=== PATIENT | male | born 1990 | race African-American/Black ===

== ENCOUNTER 2017-07-15 18:09 | Emergency (ER) | payer SELFPAY ==
[~2017-07-15] VITALS: Ht 182.9 cm; Wt 70.0 kg
[~2017-07-15 18:09] MED LIST: PRED10PA PO
[2017-07-15 18:18] VITALS: BP 111/71; PULSE 62; RESP 16; TEMP 97.6; O2SAT 99
== END 2017-07-15 20:44 | disposition left against medical advice (07) ==
LOC: NETRI 18:09
DX: R68.89 Other general symptoms and signs (principal)
CPT/HCPCS: 99281

== ENCOUNTER 2017-07-16 16:46 | Emergency (ER) | payer SELFPAY ==
[~2017-07-16] VITALS: Ht 182.9 cm; Wt 70.9 kg
[2017-07-16 17:05] VITALS: BP 107/71; PULSE 57; RESP 16; TEMP 97.6; O2SAT 100
[2017-07-16] MEDS ORDERED: SODIUM CHLOR 0.9% 1000 ML INJ 1,000 ML IV SCH (19:47)
[2017-07-16 19:53] LABS: BILIRUBIN, URINE NEG (NEG); BLOOD, URINE NEG (NEG); GLUCOSE,URINE NEG (NEG); KETONE, URINE 15 mg/dL (NEG); NITRITE,URINE NEG (NEG); PH, URINE 6.5 (5.0-8.5); URINE COLOR YELLOW (YELLW/STRAW); URINE LEUKOCYTE ESTERASE NEG (NEG)
[2017-07-16] MEDS ORDERED: SODIUM CHLORIDE 0.9% FLUSH 10 ML FLUSH IV FLUSH PRN (20:00)
[2017-07-16 20:02] VITALS: BP 120/76; PULSE 55; RESP 18; O2SAT 100
--- NOTE | 2017-07-16 20:02 | PD ---
HPI Chief Complaint: Abdominal Pain Time Seen by Provider: 19:28 Travel History International Travel<30 days: No Contact w/Intl Traveler<30days: No Traveled to known affect area: No History of Present Illness HPI Patient is a 27-year-old male who presents to emergency room with complaints of abdominal pain. Patient reports that since yesterday, he has been having intermittent bouts of abdominal pain. Patient reports that when he has abdominal pain, pain is sharp and stabbing in nature and resolves after about 1 hour of time. Patient reports that he was at work today and he had another episode of abdominal pain. Reports that it again lasted 1 hour and he had to go home from work due to this pain. Patient reports complete resolution abdominal pain at this time. Reports that nothing makes pain better or worse when he has these symptoms. Patient with no nausea or vomiting, denies constipation or diarrhea, reports that he had a bowel movement prior to coming to the emergency room. Denies fever/chills. patient with no complaints at this time. PFSH Past Medical History Medical History: Denies Significant Hx Diminished Hearing: No Tetanus Vaccination: < 5 Years Influenza Vaccination: No ?: Not Past Surgical History Surgical History: No Previous Surgery Social History Alcohol Use: Yes (OCCASIONAL) Tobacco Use: No Substance Use: No Allergies-Medications (Allergen,Severity, Reaction): Coded Allergies: No Known Allergies (Verified , 10/23/15) Reported Meds & Prescriptions Reported Meds & Active Scripts Active Sterapred Ds 12 Day Pack (Prednisone) 10 Mg Manolo 10 Mg PO DIRECTED USE DIRECTED Reported Sterapred Ds (Prednisone) 10 Mg Manolo 10 Mg PO DIRECTED Review of Systems General / Constitutional: No: Fever, Chills Eyes: No: Visual changes HENT: No: Headaches Cardiovascular: No: Chest Pain or Discomfort Respiratory: No: Shortness of Breath Gastrointestinal: Positive: Abdominal Pain, No: Nausea, Vomiting, Diarrhea Genitourinary: No: Dysuria Musculoskeletal: No: Pain Skin: No Rash Neurologic: No: Weakness Psychiatric: No: Depression Endocrine: No: Polydipsia Hematologic/Lymphatic: No: Easy Bruising Physical Exam Narrative GENERAL: NAD SKIN: Focused skin assessment warm/dry. HEAD: Atraumatic. Normocephalic. EYES: Pupils equal and round. No scleral icterus. No injection or drainage. ENT: No nasal bleeding or discharge. Mucous membranes pink and moist. NECK: Trachea midline. No JVD. CARDIOVASCULAR: Regular rate and rhythm. No murmur appreciated. RESPIRATORY: No accessory muscle use. Clear to auscultation. Breath sounds equal bilaterally. GASTROINTESTINAL: Abdomen soft, non-tender, nondistended. Hepatic and splenic margins not palpable. MUSCULOSKELETAL: No obvious deformities. No clubbing. No cyanosis. No edema. NEUROLOGICAL: Awake and alert. No obvious cranial nerve deficits. Motor grossly within normal limits. Normal speech. PSYCHIATRIC: Appropriate mood and affect; insight and judgment normal. Data Data Last Documented VS Vital Signs Date Time Temp Pulse Resp B/P (MAP) Pulse Ox O2 Delivery O2 Flow Rate FiO2 07/16/17 21:14 55 16 122/73 (89) 100 Room Air 07/16/17 17:05 97.6 Orders Orders Urinalysis - C+S If Indicated (07/16/17 18:13) Complete Blood Count With Diff (07/16/17 19:47) Comprehensive Metabolic Panel (07/16/17 19:47) Lipase (07/16/17 19:47) Prothrombin Time / Inr (Pt) (07/16/17 19:47) Act Partial Throm Time (Ptt) (07/16/17 19:47) Iv Access Insert/Monitor (07/16/17 19:47) Ecg Monitoring (07/16/17 19:47) Oximetry (07/16/17 19:47) Sodium Chlor 0.9% 1000 Ml Inj (Ns 1000 M (07/16/17 19:47) Sodium Chloride 0.9% Flush (Ns Flush) (07/16/17 20:00) Urine Culture (07/16/17 19:30) Gc And Chlamydia Pcr (07/16/17 21:35) Labs Laboratory Tests Test 07/16/17 19:30 07/16/17 19:55 Urine Color YELLOW Urine Turbidity CLEAR Urine pH 6.5 Urine Specific [place] 1.025 Urine Protein TRACE mg/dL Urine Glucose (UA) NEG mg/dL Urine Ketones 15 mg/dL Urine Occult Blood NEG Urine Nitrite NEG Urine Bilirubin NEG Urine Urobilinogen 1.0 MG/DL Urine Leukocyte Esterase NEG Urine RBC 0-3 /hpf Urine WBC 9-14 /hpf Urine Squamous Epithelial Cells 0-5 /hpf Urine Bacteria OCC /hpf Urine Mucus MANY /lpf Microscopic Urinalysis Comment CULTURE INDICATED White Blood Count 7.7 TH/MM3 Red Blood Count 5.32 MIL/MM3 Hemoglobin 12.2 GM/DL Hematocrit 38.4 % Mean Corpuscular Volume 72.0 FL Mean Corpuscular Hemoglobin 23.0 PG Mean Corpuscular Hemoglobin Concent 31.9 % Red Cell Distribution Width 14.2 % Platelet Count 294 TH/MM3 Mean Platelet Volume 7.9 FL Neutrophils (%) (Auto) 55.4 % Lymphocytes (%) (Auto) 24.6 % Monocytes (%) (Auto) 5.8 % Eosinophils (%) (Auto) 13.6 % Basophils (%) (Auto) 0.6 % Neutrophils # (Auto) 4.4 TH/MM3 Lymphocytes # (Auto) 1.9 TH/MM3 Monocytes # (Auto) 0.4 TH/MM3 Eosinophils # (Auto) 1.0 TH/MM3 Basophils # (Auto) 0.0 TH/MM3 CBC Comment AUTO DIFF Differential Comment AUTO DIFF CONFIRMED Ovalocytes 1+ Prothrombin Time 11.7 SEC Prothromb Time International Ratio 1.2 RATIO Activated Partial Thromboplast Time 27.1 SEC Blood Urea Nitrogen 13 MG/DL Creatinine 0.92 MG/DL Random Glucose 90 MG/DL Total Protein 8.7 GM/DL Albumin 4.4 GM/DL Calcium Level 9.8 MG/DL Alkaline Phosphatase 46 U/L Aspartate Amino Transf (AST/SGOT) 21 U/L Alanine Aminotransferase (ALT/SGPT) 19 U/L Total Bilirubin 0.7 MG/DL Sodium Level 138 MEQ/L Potassium Level 3.6 MEQ/L Chloride Level 104 MEQ/L Carbon Dioxide Level 28.3 MEQ/L Anion Gap 6 MEQ/L Estimat Glomerular Filtration Rate 119 ML/MIN Lipase 110 U/L [facility] Medical Decision Making Medical Screen Exam Complete: Yes Emergency Medical Condition: Yes Medical Record Reviewed: Yes Interpretation(s) Vital Signs Date Time Temp Pulse Resp B/P (MAP) Pulse Ox O2 Delivery O2 Flow Rate FiO2 07/16/17 17:05 97.6 57 16 107/71 (83) 100 Differential Diagnosis Gastritis, gastroenteritis, cholecystitis Narrative Course Patient is a 27 year old male who presents to the ER with complaints of abdominal pain x 2 days. Patient currently with no abdominal pain at this time. During the course of the patients emergency department visit, the patients history, examination, and differential diagnosis were reviewed with the patient. The patient was placed on a cardiac cath lab manager with oximetry and frequent blood pressure monitoring. The patient had an IV access obtained and blood work sent for analysis. The patient was initially provided IVF. The patients laboratory studies were reviewed and remarkable for: Laboratory Tests Test 07/16/17 19:30 07/16/17 19:55 Urine Color YELLOW (YELLW/STRAW) Urine Turbidity CLEAR (CLEAR) Urine pH 6.5 (5.0-8.5) Urine Specific [place] 1.025 (1.002-1.035) Urine Protein TRACE mg/dL (NEG-TRACE) Urine Glucose (UA) NEG mg/dL (NEG) Urine Ketones 15 mg/dL (NEG) Urine Occult Blood NEG (NEG) Urine Nitrite NEG (NEG) Urine Bilirubin NEG (NEG) Urine Urobilinogen 1.0 MG/DL (LESS THAN Urine Leukocyte Esterase NEG (NEG) Urine RBC 0-3 /hpf (0-3) Urine WBC 9-14 /hpf (0-5) Urine Squamous Epithelial Cells 0-5 /hpf (0-5) Urine Bacteria OCC /hpf (NONE) Urine Mucus MANY /lpf (OCC) Microscopic Urinalysis Comment CULTURE INDICATED White Blood Count 7.7 TH/MM3 (4.0-11.0) Red Blood Count 5.32 MIL/MM3 (4.50-5.90) Hemoglobin 12.2 GM/DL (13.0-17.0) Hematocrit 38.4 % (39.0-51.0) Mean Corpuscular Volume 72.0 FL (80.0-100.0) Mean Corpuscular Hemoglobin 23.0 PG (27.0-34.0) Mean Corpuscular Hemoglobin Concent 31.9 % (32.0-36.0) Red Cell Distribution Width 14.2 % (11.6-17.2) Platelet Count 294 TH/MM3 (150-450) Mean Platelet Volume 7.9 FL (7.0-11.0) Neutrophils (%) (Auto) 55.4 % (16.0-70.0) Lymphocytes (%) (Auto) 24.6 % (9.0-44.0) Monocytes (%) (Auto) 5.8 % (0.0-8.0) Eosinophils (%) (Auto) 13.6 % (0.0-4.0) Basophils (%) (Auto) 0.6 % (0.0-2.0) Neutrophils # (Auto) 4.4 TH/MM3 (1.8-7.7) Lymphocytes # (Auto) 1.9 TH/MM3 (1.0-4.8) Monocytes # (Auto) 0.4 TH/MM3 (0-0.9) Eosinophils # (Auto) 1.0 TH/MM3 (0-0.4) Basophils # (Auto) 0.0 TH/MM3 (0-0.2) CBC Comment AUTO DIFF Differential Comment AUTO DIFF CONFIRMED Ovalocytes 1+ (NORMAL) Prothrombin Time 11.7 SEC (9.8-11.6) Prothromb Time International Ratio 1.2 RATIO Activated Partial Thromboplast Time 27.1 SEC (24.3-30.1) Blood Urea Nitrogen 13 MG/DL (7-18) Creatinine 0.92 MG/DL (0.60-1.30) Random Glucose 90 MG/DL (74-106) Total Protein 8.7 GM/DL (6.4-8.2) Albumin 4.4 GM/DL (3.4-5.0) Calcium Level 9.8 MG/DL (8.5-10.1) Alkaline Phosphatase 46 U/L (45-117) Aspartate Amino Transf (AST/SGOT) 21 U/L (15-37) Alanine Aminotransferase (ALT/SGPT) 19 U/L (12-78) Total Bilirubin 0.7 MG/DL (0.2-1.0) Sodium Level 138 MEQ/L (136-145) Potassium Level 3.6 MEQ/L (3.5-5.1) Chloride Level 104 MEQ/L (98-107) Carbon Dioxide Level 28.3 MEQ/L (21.0-32.0) Anion Gap 6 MEQ/L (5-15) Estimat Glomerular Filtration Rate 119 ML/MIN (>89) Lipase 110 U/L (73-393) Patient reevaluated, patient reports that he is feeling much better at this time. Abdomen is soft, nontender, nondistended, no peritoneal signs. I reviewed all labs and all studies with patient in detail, patient understands all incidental findings. UA is positive for 9-14 white blood cells, occasional bacteria, many mucus, 15 ketones, patient denies any penile discharge, denies dysuria, urinary urgency or frequency. Discussed with him that I will not treat him for UTI as he is asymptomatic. Patient is well-appearing, has not had any nausea, vomiting or diarrhea while in the emergency room. Patient will follow-up with his primary care doctor and will return to the emergency room as needed. Diagnosis Primary Impression: Abdominal pain Qualified Codes: R10.84 - Generalized abdominal pain Patient Instructions: General Instructions Departure Forms: Tests/Procedures, Work Release Enter return to work date: Jul 17, 2017 Additional Instructions: Please provide patient with a copy of their lab work at discharge Please follow up with your primary care doctor in 2-3 days Return to the ER if symptoms worsen or progress Return to the ER as needed Please follow-up with all cultures from today Disposition: 01 DISCHARGE HOME Condition: Stable Gayle Gagnon DO Jul 16, 2017 20:02
[2017-07-16 20:08] LABS: AUTOMATED NEUTROPHIL # 4.4 TH/MM3 (1.8-7.7); BASOPHIL % 0.6 % (0.0-2.0); EOSINOPHIL % 13.6 % (0.0-4.0); HEMATOCRIT 38.4 % (39.0-51.0); HEMOGLOBIN 12.2 GM/DL (13.0-17.0); LYMPH % 24.6 % (9.0-44.0); LYMPHOCYTE # 1.9 TH/MM3 (1.0-4.8); MEAN CORPUSCULAR HGB CONC 31.9 % (32.0-36.0); MEAN PLATELET VOLUME 7.9 FL (7.0-11.0); MONO % 5.8 % (0.0-8.0); MONOCYTE # 0.4 TH/MM3 (0-0.9); NEUT % 55.4 % (16.0-70.0); PLATELET COUNT 294 TH/MM3 (150-450); RED BLOOD COUNT 5.32 MIL/MM3 (4.50-5.90); RED CELL DISTRIBUTION WIDTH 14.2 % (11.6-17.2); WHITE BLOOD COUNT 7.7 TH/MM3 (4.0-11.0)
[2017-07-16 20:14] LABS: BACTERIA, URINE OCC /hpf; MUCUS URINE MANY /lpf (OCC); RBC, URINE 0-3 /hpf (0-3); SQUAMOUS EPITHELIAL CELL URINE 0-5 /hpf (0-5)
[2017-07-16 20:17] LABS: CHLORIDE 104 MEQ/L (98-107); SODIUM (NA) 138 MEQ/L (136-145)
[2017-07-16 20:19] LABS: INTERNATIONAL NORMALIZED RATIO 1.2 RATIO; PROTHROMBIN TIME - PATIENT 11.7 SEC (9.8-11.6)
[2017-07-16 20:21] LABS: CALCIUM 9.8 MG/DL (8.5-10.1)
[2017-07-16 20:22] LABS: ALBUMIN 4.4 GM/DL (3.4-5.0); BICARBONATE 28.3 MEQ/L (21.0-32.0); BLOOD UREA NITROGEN 13 MG/DL (7-18); GLUCOSE,RANDOM 90 MG/DL (74-106)
[2017-07-16 20:24] LABS: ALT (GPT) 19 U/L (12-78)
[2017-07-16 20:25] LABS: AST (GOT) 21 U/L (15-37); CREATININE 0.92 MG/DL (0.60-1.30); GLOMERULAR FILTRATION RATE 119 ML/MIN (>89)
[2017-07-16 20:26] LABS: TOTAL BILIRUBIN ADULT 0.7 MG/DL (0.2-1.0); TOTAL PROTEIN 8.7 GM/DL (6.4-8.2)
[2017-07-16 20:27] LABS: ALKALINE PHOSPHATASE 46 U/L (45-117)
[2017-07-16 21:13] LABS: OVALOCYTES 1+ (NORMAL)
[2017-07-16 21:14] VITALS: BP 122/73; PULSE 55; RESP 16; O2SAT 100
[2017-07-16 21:50] VITALS: BP 116/74
[2017-07-17] MEDS ORDERED: OMEP20TA93 PO (09:19)
== END 2017-07-16 22:00 | disposition home or self-care (01) ==
LOC: PHED 16:46
DX: R10.84 Generalized abdominal pain (principal)
CPT/HCPCS: 80053; 81001; 83690; 85025; 85610; 85730; 87086; 87491; 87591; 96360; 99284; J7030

== ENCOUNTER 2017-07-17 08:35 | Emergency (ER) | payer SELFPAY ==
[~2017-07-17] VITALS: Ht 182.9 cm; Wt 72.5 kg
[2017-07-17 08:40] VITALS: BP 120/55; PULSE 73; RESP 16; TEMP 98.2; O2SAT 99
--- NOTE | 2017-07-17 08:59 | PD ---
HPI Chief Complaint: Abdominal Pain Time Seen by Provider: 08:58 Travel History International Travel<30 days: No Contact w/Intl Traveler<30days: No Traveled to known affect area: No History of Present Illness HPI 27-year-old male came to the emergency room with history of epigastric pain that has been intermittently therefore many months. Patient has noticed in past few weeks it has become more frequent. Patient says that the pain comes in sudden waves without warning and is severe enough where he has to stop whatever he is doing till the pain passes away. It does not lead to any vomiting, diarrhea or passing gas. No aggravating symptoms noticed. Patient does feel better if he eats something. Patient was seen in [place] emergency room yesterday where he was diagnosed with UTI as per the patient but no prescription was given. However he went home and looked up his symptoms and he is concerned that they have pointing towards his gallbladder. That is why he came here to get further tests done. Currently patient is pain-free. He said he ate a bowl of cereal this morning an hour ago and was able to keep it down. Vital signs are stable. Patient has been in this emergency room multiple times. He does not have a primary care. Patient smokes and drinks occasionally and eats spicy food. [facility], [facility] Past Medical History Narrative Medical List of his past medical, surgical, social and family history is reviewed from the nursing note. Medical History: Denies Significant Hx Diminished Hearing: No Past Surgical History Surgical History: No Previous Surgery Social History Alcohol Use: Yes (OCCASIONAL) Tobacco Use: No Substance Use: No Allergies-Medications (Allergen,Severity, Reaction): Coded Allergies: No Known Allergies (Verified Adverse Reaction, Unknown, 07/17/17) Comments No known drug allergies. Reported Meds & Prescriptions Reported Meds & Active Scripts Active Omeprazole 20 Mg Tab 20 Mg PO DAILY Narrative Medication List of his home medications reviewed from the nursing note. Review of Systems Except as stated in HPI: all other systems reviewed are Neg Gastrointestinal: Positive: Abdominal Pain Physical Exam Narrative GENERAL: Awake, alert, no obvious distress SKIN: Focused skin assessment warm/dry. HEAD: Atraumatic. Normocephalic. EYES: Pupils equal and round. No scleral icterus. No injection or drainage. ENT: No nasal bleeding or discharge. Mucous membranes pink and moist. NECK: Trachea midline. No JVD. CARDIOVASCULAR: Regular rate and rhythm. No murmur appreciated. RESPIRATORY: No accessory muscle use. Clear to auscultation. Breath sounds equal bilaterally. GASTROINTESTINAL: Abdomen soft, non-tender, nondistended. Hepatic and splenic margins not palpable. MUSCULOSKELETAL: No obvious deformities. No clubbing. No cyanosis. No edema. NEUROLOGICAL: Awake and alert. No obvious cranial nerve deficits. Motor grossly within normal limits. Normal speech. PSYCHIATRIC: Appropriate mood and affect; insight and judgment normal. Data Data Last Documented VS Vital Signs Date Time Temp Pulse Resp B/P (MAP) Pulse Ox O2 Delivery O2 Flow Rate FiO2 07/17/17 09:37 78 18 118/72 (87) 99 07/17/17 08:40 98.2 Orders Orders Ed Poc Ultrasound (07/17/17 ) Ed Discharge Order (07/17/17 09:17) [facility] Medical Decision Making Medical Screen Exam Complete: Yes Emergency Medical Condition: Yes Medical Record Reviewed: Yes Differential Diagnosis Acute gastritis, biliary colic, abdominal pain NOS Narrative Course 9:22 AM I did a bedside ultrasound. Please refer to my procedure note. I was unable to see any gallstones. Patient will be discharged home. I gave him instructions for diet control regarding acute gastritis/GERD. Patient understands. He will go home with prescription. Procedures Procedure Narrative Emergency department right upper quadrant ultrasound was performed with patient consent. Curvilinear probe was used in the transverse and sagittal views within the right upper quadrant revealing gallbladder without obvious wall thickening, cholecystic fluid, or cholelithiasis. EKG Prior to Arrival: No Diagnosis Primary Impression: Abdominal pain Qualified Codes: R10.13 - Epigastric pain Additional Impression: Acute gastritis Qualified Codes: K29.00 - Acute gastritis without bleeding Referrals: [facility] Additional Instructions: Take the medication as per the prescription direction. Do not drink alcohol, smoke cigarettes, eat citrus food or drink or eat spicy food. If symptoms do not improve with diet control and medication in 2 weeks please follow-up with the clinic whose number and address been given to you to get an outpatient ultrasound prescribed from them. Med/Other Pt SpecificInfo: Prescription(s) given Scripts Omeprazole (Omeprazole) 20 Mg Tab 20 MG PO DAILY, #30 TAB 0 Refills Prov: John Rousseau MD 07/17/17 Disposition: 01 DISCHARGE HOME Condition: Stable John Rousseau MD Jul 17, 2017 08:59
[2017-07-17] MEDS ORDERED: OMEP20TA93 PO (09:19)
[2017-07-17 09:37] VITALS: BP 118/72
== END 2017-07-17 09:39 | disposition home or self-care (01) ==
LOC: NEPC 08:35
DX: K29.00 Acute gastritis without bleeding (principal)

== ENCOUNTER 2017-07-26 08:28 | Emergency (ER) | payer SELFPAY ==
[~2017-07-26] VITALS: Ht 182.9 cm; Wt 70.0 kg
[~2017-07-26 08:28] MED LIST changes: +OMEP20TA93 PO; -PRED10PA PO
[2017-07-26 08:34] VITALS: BP 115/69; PULSE 84; RESP 15; TEMP 97.9; O2SAT 100
[2017-07-26] MEDS ORDERED: SODIUM CHLOR 0.9% 1000 ML INJ 1,000 ML IV SCH (08:54)
--- NOTE | 2017-07-26 08:58 | PD ---
HPI Chief Complaint: Abdominal Pain Time Seen by Provider: 08:38 Travel History International Travel<30 days: No Contact w/Intl Traveler<30days: No Traveled to known affect area: No History of Present Illness HPI The patient is a 27-year-old -[place] male who presents to emergency department for epigastric abdominal pain. The patient notes intermittent epigastric abdominal pain for the last several months. The pain is intermittent , described as dull, pressure, occasionally symptoms. He denies any known history of gastritis or peptic ulcer disease, denies any chronic alcohol use. The patient does state he underwent endoscopy and colonoscopy several years ago. He denies any history of gallstones or previous abdominal surgery. He denies any associated fever, chills, or sweats. Symptoms are moderate. PFSH Past Medical History Diminished Hearing: No Gastrointestinal Disorders: Yes (HEMORRHOIDS) Tetanus Vaccination: < 5 Years Influenza Vaccination: No Past Surgical History Surgical History: No Previous Surgery Social History Alcohol Use: Yes (OCCASIONAL) Tobacco Use: No Substance Use: Yes (weed) Allergies-Medications (Allergen,Severity, Reaction): Coded Allergies: No Known Allergies (Verified Adverse Reaction, Unknown, 07/26/17) Reported Meds & Prescriptions Reported Meds & Active Scripts Active No Active Prescriptions or Reported Medications Review of Systems Except as stated in HPI: all other systems reviewed are Neg General / Constitutional: No: Fever Cardiovascular: No: Chest Pain or Discomfort Respiratory: No: Shortness of Breath Gastrointestinal: Positive: Abdominal Pain, No: Nausea, Vomiting, Diarrhea Physical Exam Narrative GENERAL: Awake, alert, pleasant 27-year-old male who appears his stated age and is in no acute respiratory distress. SKIN: Focused skin assessment warm/dry. HEAD: Atraumatic. Normocephalic. EYES: No injection or drainage. ENT: No nasal bleeding or discharge. Mucous membranes pink and moist. NECK: Trachea midline. No JVD. CARDIOVASCULAR: Regular rate and rhythm. No murmur appreciated. RESPIRATORY: No accessory muscle use. Clear to auscultation. Breath sounds equal bilaterally. GASTROINTESTINAL: Abdomen soft, minimal epigastric tenderness. No guarding or rigidity. Negative Virk's. Negative McBurney's. MUSCULOSKELETAL: No obvious deformities. No clubbing. No cyanosis. No edema. NEUROLOGICAL: Awake and alert. No obvious cranial nerve deficits. Motor grossly within normal limits. Normal speech. PSYCHIATRIC: Appropriate mood and affect; insight and judgment normal. Data Data Last Documented VS Vital Signs Date Time Temp Pulse Resp B/P (MAP) Pulse Ox O2 Delivery O2 Flow Rate FiO2 07/26/17 11:05 98.1 75 15 132/79 (96) 100 Room Air Orders Orders Complete Blood Count With Diff (07/26/17 08:54) Comprehensive Metabolic Panel (07/26/17 08:54) Lipase (07/26/17 08:54) Lactic Acid (07/26/17 08:54) Iv Access Insert/Monitor (07/26/17 08:54) Ecg Monitoring (07/26/17 08:54) Oximetry (07/26/17 08:54) Morphine Inj (Morphine Inj) (07/26/17 09:00) Ondansetron Inj (Zofran Inj) (07/26/17 09:00) Sodium Chlor 0.9% 1000 Ml Inj (Ns 1000 M (07/26/17 08:54) Sodium Chloride 0.9% Flush (Ns Flush) (07/26/17 09:00) Famotidine Inj (Pepcid Inj) (07/26/17 09:00) Al-Mag Hy-Si 40-40-4 Mg/Ml Liq (Mag-Al P (07/26/17 09:00) Lidocaine 2% Viscous (Xylocaine 2% Visco (07/26/17 09:00) Labs Laboratory Tests Test 07/26/17 09:10 White Blood Count 6.0 TH/MM3 Red Blood Count 5.26 MIL/MM3 Hemoglobin 12.1 GM/DL Hematocrit 37.0 % Mean Corpuscular Volume 70.4 FL Mean Corpuscular Hemoglobin 23.1 PG Mean Corpuscular Hemoglobin Concent 32.8 % Red Cell Distribution Width 15.9 % Platelet Count 281 TH/MM3 Mean Platelet Volume 7.4 FL Neutrophils (%) (Auto) 42.9 % Lymphocytes (%) (Auto) 27.8 % Monocytes (%) (Auto) 6.8 % Eosinophils (%) (Auto) 22.0 % Basophils (%) (Auto) 0.5 % Neutrophils # (Auto) 2.6 TH/MM3 Lymphocytes # (Auto) 1.7 TH/MM3 Monocytes # (Auto) 0.4 TH/MM3 Eosinophils # (Auto) 1.3 TH/MM3 Basophils # (Auto) 0.0 TH/MM3 CBC Comment DIFF FINAL Differential Comment Blood Urea Nitrogen 12 MG/DL Creatinine 0.98 MG/DL Random Glucose 93 MG/DL Total Protein 7.7 GM/DL Albumin 4.2 GM/DL Calcium Level 9.3 MG/DL Alkaline Phosphatase 45 U/L Aspartate Amino Transf (AST/SGOT) 22 U/L Alanine Aminotransferase (ALT/SGPT) 21 U/L Total Bilirubin 1.1 MG/DL Sodium Level 140 MEQ/L Potassium Level 4.1 MEQ/L Chloride Level 107 MEQ/L Carbon Dioxide Level 27.8 MEQ/L Anion Gap 5 MEQ/L Estimat Glomerular Filtration Rate 110 ML/MIN Lactic Acid Level 1.0 mmol/L Lipase 82 U/L [facility] Medical Decision Making Medical Screen Exam Complete: Yes Emergency Medical Condition: Yes Medical Record Reviewed: Yes Interpretation(s) Laboratory Tests Test 07/26/17 09:10 White Blood Count 6.0 TH/MM3 Red Blood Count 5.26 MIL/MM3 Hemoglobin 12.1 GM/DL Hematocrit 37.0 % Mean Corpuscular Volume 70.4 FL Mean Corpuscular Hemoglobin 23.1 PG Mean Corpuscular Hemoglobin Concent 32.8 % Red Cell Distribution Width 15.9 % Platelet Count 281 TH/MM3 Mean Platelet Volume 7.4 FL Neutrophils (%) (Auto) 42.9 % Lymphocytes (%) (Auto) 27.8 % Monocytes (%) (Auto) 6.8 % Eosinophils (%) (Auto) 22.0 % Basophils (%) (Auto) 0.5 % Neutrophils # (Auto) 2.6 TH/MM3 Lymphocytes # (Auto) 1.7 TH/MM3 Monocytes # (Auto) 0.4 TH/MM3 Eosinophils # (Auto) 1.3 TH/MM3 Basophils # (Auto) 0.0 TH/MM3 CBC Comment DIFF FINAL Differential Comment Blood Urea Nitrogen 12 MG/DL Creatinine 0.98 MG/DL Random Glucose 93 MG/DL Total Protein 7.7 GM/DL Albumin 4.2 GM/DL Calcium Level 9.3 MG/DL Alkaline Phosphatase 45 U/L Aspartate Amino Transf (AST/SGOT) 22 U/L Alanine Aminotransferase (ALT/SGPT) 21 U/L Total Bilirubin 1.1 MG/DL Sodium Level 140 MEQ/L Potassium Level 4.1 MEQ/L Chloride Level 107 MEQ/L Carbon Dioxide Level 27.8 MEQ/L Anion Gap 5 MEQ/L Estimat Glomerular Filtration Rate 110 ML/MIN Lactic Acid Level 1.0 mmol/L Lipase 82 U/L Differential Diagnosis Differential diagnosis includes gastritis, peptic ulcer disease, intestinal angina, cholelithiasis, atypical cholecystitis, pancreatitis. Narrative Course IV was established, labs are drawn and sent, and the patient was placed on cardiac telemetry monitoring and continuous pulse oximetry monitoring. The patient was a medical insurance biller morphine, Zofran, Pepcid, GI cocktail, was placed on IV fluids. The patient's labs are essentially unremarkable except for elevated eosinophils. I did review the patient's blood work, he has had elevated eosinophils in the past. Patient's LFTs and lipase are unremarkable. The patient may have gastritis, peptic ulcer disease, possibly esophagitis. With elevated eosinophils, possibly could be eosinophilic esophagitis. The patient is already on a proton pump inhibitor. The patient was reevaluated, his pain had improved. He is advised to follow-up with gastroenterology as he most likely will need endoscopy. Patient agrees and understands. Diagnosis Primary Impression: Epigastric abdominal pain Patient Instructions: General Instructions, Narcotic given in the ED Additional Instructions: Continue omeprazole as previously directed. Please provide the patient a copy of his labs at discharge. Follow-up with gastroenterology as he may benefit from outpatient endoscopy. Med/Other Pt SpecificInfo: No Change to Meds Scripts No Active Prescriptions or Reported Meds Disposition: 01 DISCHARGE HOME Condition: Stable Ritesh Galaviz MD July 26, 2017 08:58
[2017-07-26] MEDS ORDERED: LIDOCAINE VISCOUS 2% SOLN 15 ML UDC PO ONE (09:00)
[2017-07-26] MEDS ORDERED: FAMOTIDINE 20 MG/2 ML VIAL IV PUSH ONE (09:00)
[2017-07-26] MEDS ORDERED: ONDANSETRON HCL 4 MG/2 ML VIAL IVP ONE (09:00)
[2017-07-26] MEDS ORDERED: SODIUM CHLORIDE 0.9% FLUSH 10 ML FLUSH IV FLUSH PRN (09:00)
[2017-07-26] MEDS ORDERED: MORPHINE SULFATE 4 MG/ML INJ IV PUSH ONE (09:00)
[2017-07-26] MEDS ORDERED: ALUMINUM/MAGNESIUM/SIMETH 30 ML CUP PO ONE (09:00)
[2017-07-26 09:26] VITALS: BP 114/70; PULSE 68; RESP 15; TEMP 98.1; O2SAT 99
[2017-07-26 09:26] LABS: AUTOMATED NEUTROPHIL # 2.6 TH/MM3 (1.8-7.7); BASOPHIL % 0.5 % (0.0-2.0); EOSINOPHIL # 1.3 TH/MM3 (0-0.4); HEMOGLOBIN 12.1 GM/DL (13.0-17.0); LYMPH % 27.8 % (9.0-44.0); LYMPHOCYTE # 1.7 TH/MM3 (1.0-4.8); MEAN CELL VOLUME 70.4 FL (80.0-100.0); MEAN CORPUSCULAR HEMOGLOBIN 23.1 PG (27.0-34.0); MEAN CORPUSCULAR HGB CONC 32.8 % (32.0-36.0); MEAN PLATELET VOLUME 7.4 FL (7.0-11.0); MONO % 6.8 % (0.0-8.0); MONOCYTE # 0.4 TH/MM3 (0-0.9); NEUT % 42.9 % (16.0-70.0); PLATELET COUNT 281 TH/MM3 (150-450); RED BLOOD COUNT 5.26 MIL/MM3 (4.50-5.90); RED CELL DISTRIBUTION WIDTH 15.9 % (11.6-17.2)
[2017-07-26 09:50] LABS: ALBUMIN 4.2 GM/DL (3.4-5.0); ALT (GPT) 21 U/L (12-78); AST (GOT) 22 U/L (15-37); BICARBONATE 27.8 MEQ/L (21.0-32.0); BLOOD UREA NITROGEN 12 MG/DL (7-18); CALCIUM 9.3 MG/DL (8.5-10.1); CHLORIDE 107 MEQ/L (98-107); CREATININE 0.98 MG/DL (0.60-1.30); GLOMERULAR FILTRATION RATE 110 ML/MIN (>89); GLUCOSE,RANDOM 93 MG/DL (74-106); SODIUM (NA) 140 MEQ/L (136-145)
[2017-07-26 09:53] LABS: ALKALINE PHOSPHATASE 45 U/L (45-117); TOTAL BILIRUBIN ADULT 1.1 MG/DL (0.2-1.0); TOTAL PROTEIN 7.7 GM/DL (6.4-8.2)
[2017-07-26 11:05] VITALS: BP 132/79; PULSE 75; RESP 15; TEMP 98.1; O2SAT 100
[2017-07-26 11:20] VITALS: BP 124/81; TEMP 97.8
== END 2017-07-26 11:20 | disposition home or self-care (01) ==
LOC: NEPE 08:28
DX: R10.13 Epigastric pain (principal); F12.90 Cannabis use, unspecified, uncomplicated
CPT/HCPCS: 80053; 83605; 83690; 85025; 96361; 96374; 96375; 99284; J2270; J2405; J7030